=== PATIENT | female | born 1930 | race Caucasian/White ===

== ENCOUNTER 2016-12-06 08:24 | Outpatient (CLI) ==
--- NOTE | 2016-12-06 09:34 | DI ---
EXAM: Two views of the right shoulder. History: Right shoulder trauma. Findings: No acute fracture or dislocation. Mild narrowing of the right AC joint. Right glenohum eral joint. Atherosclerotic vascular calcifications. Osteopenia. Impression: No acute osseous abnormality.
--- NOTE | 2016-12-06 09:37 | DI ---
EXAM: Radiographs, left shoulder HISTORY: Initial presentation for left shoulder trauma. Muscle weakness. COMPARISON: None available. TECHNIQUE: Two views. FINDINGS: The bones are demineralized. No fracture or dislocation identified. The humeral head si ts somewhat high, nearly articulating with the undersurface of the acromion, and there is sclerosis and spurring off the inferior acromion and humeral head. There is moderate marginal osteophyte form ation at the acromioclavicular joint. No erosive changes are seen. Probable calcified granulomatous changes within the left lung. Increased interstitial markings throughout the left lung are nonspec ific although fibrosis could be present. Atherosclerotic calcifications are present in the aorta. IMPRESSION: 1. No fracture or dislocation. 2. Moderate acromioclavicular osteoarthritis. 3. Findings suggest rotator cuff pathology.
--- NOTE | 2016-12-06 09:53 | US ---
EXAM: Ultrasound renal Doppler. HISTORY: Acute renal failure. COMPARISON: None available. TECHNIQUE: Carrasquillo-scale and color Doppler images. FINDINGS: Right kidney measures 9.2 cm in length. There is no hydronephrosis. The right renal artery origin and midportion are not identified. Peak systolic velocity in the righ t renal artery at the renal hilum measures 0.5 meters per second. Right renal artery to aortic rati os measure 0.8. Right renal resistive index measures 0.65. Left kidney measures 7.8 cm in length. There is no hydronephrosis. The left renal artery origin is not identified. Peak systolic velocity measurements in the left yasir al artery are 1.8 and 0.8 meters per second in the midportion and distal portion respectively. Left renal artery to aortic ratios measure 3 and 1.3. Left renal resistive index measures 0.88. Venous outflow is seen bilaterally. IMPRESSION: 1. Elevated velocity in the mid left renal artery may represent hemodynamically significant stenosi s. 2. No evidence for hemodynamically significant stenosis in the right renal artery at the level exam ined.
--- NOTE | 2016-12-06 09:55 | US ---
Exam: Carrasquillo-scale and color Doppler ultrasonographic evaluation of the kidneys and urinary bladder. Comparison: None available. Reason for exam: Acute renal failure. FINDINGS: Evaluation is significantly limited by patient body habitus and overlying bowel gas. The right kidney measures approximately 9.21 x 5.23 x 3.50 cm with a hyperechoic echotexture. The r enal collecting system on the right was not able to be evaluated secondary to overlying bowel gas. The renal cortex on the right measures approximately 0.71 cm. The left kidney measures approximately 7.82 x 4.41 x 3.90 cm with a diffusely hyperechoic echotextur e. The left renal collecting system is not well evaluated secondary to overlying bowel gas. Left r enal cortex measures approximately 0.79 cm. The bladder was not well seen secondary to overlying bowel gas. Impression: 1. Extremely limited evaluation secondary to overlying bowel gas with apparent diffusely hyperechoic echotexture of both kidneys with mild cortical thinning. 2. The bladder was not seen secondary to overlying bowel gas
== END 2016-12-06 08:25 | disposition home or self-care (01) ==
LOC: RAD 08:24
PROVIDERS: ATTEND Emergency Medicine
DX: M79.604 Pain in right leg (principal); R60.0 Localized edema; N17.9 Acute kidney failure, unspecified; W18.30XD Fall on same level, unspecified, subsequent encounter; M62.81 Muscle weakness (generalized)
CPT/HCPCS: 76770

== ENCOUNTER 2017-02-25 15:51 | Outpatient (CLI) ==
[2017-02-25 16:06] LABS: BASOPHILS % (AUTO) 0.4 % (0.0-3.0); EOSINOPHILS # (AUTO) 0.7 K/ul (0.0-0.7); EOSINOPHILS % (AUTO) 5.9 % (0.0-7.0); HEMATOCRIT 40.1 % (37.0-47.0); HEMOGLOBIN 13.3 g/dl (12.0-16.0); IMMATURE GRANULOCYTE % (AUTO) 0.5 % (0.0-5.0); LYMPHOCYTES # (AUTO) 1.6 K/uL (0.60-3.4); LYMPHOCYTES % (AUTO) 14.2 (10.0-50.0); MEAN CORPUSCULAR HEMOGLOBIN 32.7 pg (27.0-31.0); MEAN CORPUSCULAR HGB CONC 33.2 (31.8-35.4); MEAN CORPUSCULAR VOLUME 98.5 fl (81.0-99.0); MONOCYTES # (AUTO) 1.1 K/uL (0.4-2.0); MONOCYTES % (AUTO) 9.3 (0-10); NEUTROPHILS # (AUTO) 7.9 K/ul (2.0-6.9); NEUTROPHILS % (AUTO) 69.7; PLATELET COUNT 331 10^3/uL (140-440); RED BLOOD COUNT 4.07 10^6/ul (4.20-5.40); WHITE BLOOD COUNT 11.28 K/ul (4.6-10.2)
[2017-02-25 16:26] LABS: ALBUMIN 2.8 g/dL (3.4-5.0); ALBUMIN/GLOBULIN RATIO 0.47; ANION GAP 18.3; BILIRUBIN,TOTAL 0.82 mg/dL (0.00-1.20); BUN/CREATININE RATIO 21.23; CALCIUM 9.8 mg/dL (8.2-10.2); CREATININE 1.46 mg/dL (0.60-1.30); POTASSIUM 3.3 mmol/L (3.5-5.10); TOTAL PROTEIN 8.7 g/dL (5.8-8.1)
== END 2017-02-25 15:52 | disposition home or self-care (01) ==
LOC: NONPT 15:51
PROVIDERS: ATTEND Emergency Medicine
DX: E87.6 Hypokalemia (principal); R41.0 Disorientation, unspecified
CPT/HCPCS: 80053; 85025

== ENCOUNTER 2017-03-01 09:07 | Outpatient (CLI) | END 2017-03-01 09:08 | disposition short-term general hospital (02) | LOC: AMBL 09:07 | PROVIDERS: ATTEND Family Medicine | DX: R40.4 Transient alteration of awareness (principal); R41.0 Disorientation, unspecified ==